=== PATIENT | male | born 1955 | race Caucasian/White ===

== ENCOUNTER 2024-02-23 23:22 | Observation (INO) | payer BC, SELFPAY ==
[2024-02-23 20:17] VITALS: BMI 29.1
[2024-02-23 20:25] VITALS: BP 123/69
[2024-02-23 20:41] LABS: % Basophils 0.4 % (0-2); % Eosinophils 2.9 % (0-6); % Immature Granulocytes 0.1 % (0-0.5); % Lymphocytes 28.4 % (20.5-51.1); % Monocytes 11.1 % (1.7-9.3); % Neutrophils 57.1 % (42.2-75.2); Absolute Eosinophils 0.2 10^3/uL (0-0.7); Absolute Lymphocytes 2.3 10^3/uL (1.2-3.4); Absolute Monocytes 0.9 10^3/uL (0.1-0.6); Absolute Neutrophils 4.6 10^3/uL (1.4-6.5); Hemoglobin 16.1 g/dL (13.0-18.0); Mean Corp Hgb Conc. 33.5 g/dL (33.0-37.0); Mean Corpuscular Volume 86.5 fL (80.0-94.0); Mean Platelet Volume 9.7 fL (7.4-10.4); Nucleated Red Blood Cells % 0 % (-); Platelet Count 288 10^3/uL (130-400); Red Blood Cell Count 5.55 10^6/uL (4.70-6.10); Red Cell Dist. Width 13.9 % (11.5-14.5)
[2024-02-23 20:58] LABS: ALT (SGPT) 38 U/L (0-50); AST (SGOT) 39 U/L (17-59); Albumin 4.3 g/dl (3.5-5.0); Alkaline Phosphatase 73 U/L (38-126); Blood Urea Nitrogen 35 mg/dl (9-20); Calcium 9.7 mg/dl (8.4-10.2); Carbon Dioxide 26 mmol/L (22-30); Chloride 99 mmol/L (98-107); Glucose 168 mg/dl (70-99); Potassium 4.4 mmol/L (3.5-5.1); Sodium 133 mmol/L (135-145); Total Bilirubin 0.4 mg/dl (0.2-1.3); Total Protein 6.9 g/dl (6.3-8.2); eGFR 46.35
--- NOTE | 2024-02-23 22:12 | ED.GENMED ---
History of Present Illness
General
Chief Complaint: Skin Problem
Source: patient and family
Exam Limitations: none
Time Seen by Provider: 02/23/24 21:49
Travel History
Have you had any contact with someone who has COVID-19?: No
Do you have any symptoms of coronavirus? Fever > 100 degrees, chills, cough, shortness of breath, sore throat, loss of taste or smell, muscle aches, or headache?: No
History of Present Illness
History of Present Illness:
This is a 68 year old male that comes in with c/o open wound on the right sided of his neck States that he had a cyst on his neck for 12-15 years. States that he was told that if this did not bother him to leave it alone. States that 2 weeks ago it
started to hurt and there was swelling. States that it felt like a golf ball. States that he went to Dr Stanford and he put him on Bactrim. Then a week ago on it was not etting any better, so he called and went in on . States that he
had opened this and packed it. Sates that in a few hours his dressing were soaked with blood. Daughter called Dr. Stanford and she was told how to take off the dressing and the packing out and repack the area. States that he continued to bleed. States
that she was to change the dressing every 24 hours. Then last night there was pus coming out of the wound. States that his lymph nodes in his neck were swollen. States that his skin also was weeping due to the tape. State that he was given Bactrim
again for a week. Tonight there is a fowl smell and it continues to be pussy. Denies any fever, chills, chest pain, SOB, abd pain, nausea, vomiting, diarrhea, headache, dizziness, urinary burning.
Past History
Past History
ED Past Medical History: CHF, HTN, Hypercholesterolemia, [place] (Multiple) and Other (Glaucoma)
ED Past Surgical History: Cardiac (Quadruple bypass, Stents)
Social History
Tobacco: Non-smoker
Alcohol: None
Personal:
Living: with family
Review of Systems
Review of Systems
All Other Systems: ROS reviewed and negative except as documented in HPI and ROS
Constitutional: Reports no symptoms; Denies fever or chills
EENT: Reports no symptoms
Respiratory: Reports no symptoms; Denies cough or trouble breathing
Cardiac: Reports no symptoms; Denies chest pain
ABD/GI: Reports no symptoms; Denies abdominal pain, nausea, vomiting or diarrhea
: Reports no symptoms
Musculoskeletal: Reports no symptoms
Skin: Reports other (Open wound right posterior neck with drainage)
Neurological: Reports no symptoms; Denies dizzy or headache
Psychiatric: Reports no symptoms
Phy Exam
General Physical Exam
General Presentation: no apparent distress
General age: appears stated age
General Skin: warm and dry
General Habitus: elderly
General Mental: alert
General Hydration: dry mucous membranes
ENT Exam
ENT Exam: TM's normal, pharynx normal and neck supple
Eye Exam
Eye Exam: EOMI
Cardiovascular Exam
Cardiovascular Exam: regular rate/rhythm, no edema, no murmur and normal peripheral pulses
Pulmonary Exam
Pulmonary Exam: lungs clear, no respiratory distress, no rales, chest non tender, no crackles, no rhonchi, no wheezing and no cough
Gastrointestinal Exam
Gastrointestinal Exam: normal bowel sounds, non tender, soft, no organomegaly, no pulsatile mass and non distended
Musculoskeletal Exam
Musculoskeletal Exam: full ROM and no edema
Skin Exam
Skin Exam: normal color, warm/dry, no petechia and redness (On the right posterior neck with almost marble size open area. Fowl smell and pussy drainage. Redness around open area. )
Psychiatric Exam
Psychiatric Exam: normal mood/affect
Course
Orders/Labs/Results
Orders:
Orders
02/23/24 20:34
Complete Blood Count/With Diff Urgent
Comprehensive Metabolic Panel Urgent
Blood Culture Urgent
ROSETTE Source: Blood/Venous
Specimen Description:
02/23/24 22:15
Piperacillin/Tazo 3.375 Gram [Zosyn] 3.375 gram in 50 ml IV NOW
02/23/24 22:26
Consult Surgery [SURGICAL CONSULT] Urgent
Consulting Provider: Rodriguez Santos
Was physician already notified: Yes
02/23/24 22:45
Blood Culture Q30M
ROSETTE Source: Blood/Venous
Specimen Description:
02/23/24 22:47
Admit/Transfer Patient As Directed
Co-Sign Provider:
Level of Care: Observation services
Assign to:: Medical/Surgical
Physician / Group: [facility]
Diagnosis: infected wound s/p I & D of the cystic lesion in the neck
Reason for Hospitalization: infected wound s/p I & D of the cystic lesion in the neck
02/23/24 22:49
Code Status As Directed
Resuscitation Status: Full Code
02/23/24 23:02
Lactic Acid Urgent
Blood Culture Q30M
ROSETTE Source: Blood/Venous
Specimen Description:
Wound Culture [Wound/Abscess/Other Culture] Urgent
ROSETTE Source: Neck
Specimen Description:
Date Specimen was Collected: 02/23/24
Time Specimen was Collected: 22:41
02/24/24 00:27
Acetaminophen [Tylenol] 650 mg PO Q4HPRN PRN
02/24/24 00:27
WOUND/OSTOMY CONSULT Routine
Reason for Consult: infected wound s/p I & D of neck cystic lesion
Activity As Directed
Activity Level: With Assistance
Pneumatic Compression Sleeves As Directed
Type: Knee high
Vital Signs As Directed
Frequency: Per unit guidelines
Weight As Directed
Frequency: Daily
DX Deep Vein Thrombosis Video Routine
02/24/24 Breakfast
Cholesterol Lowering
At Your Request: Full Participation
Cholesterol Lowering: Sodium, 2 Gram
Basic Metabolic Panel IN AM
Complete Blood Count/No Diff IN AM
Abnormal Lab Results
02/23/24
20:34
Absolute Monos (auto) 0.9 H 10^3/uL
(0.1-0.6)
Monocytes % 11.1 H %
(1.7-9.3)
Sodium 133 L mmol/L
(135-145)
BUN 35 H mg/dl
(9-20)
Creatinine 1.6 H mg/dL
(0.7-1.3)
Glucose 168 H mg/dl
(70-99)
02/23/24 20:34
02/23/24 20:34
Sodium slightly low. Dehydration. Acute renal insufficiency, Glucose nonfasting. Lactic 1.0
Vital Signs
Initial and Last Documented VS:
Initial Vital Signs
Temp Pulse Resp BP Pulse Ox
98.2 F 62 19 123/69 99
02/23/24 20:25 02/23/24 20:25 02/23/24 20:25 02/23/24 20:25 02/23/24 20:25
Last Documented Vital Signs
Temp Pulse Resp BP Pulse Ox
98.1 F 55 16 105/58 97
02/24/24 00:25 02/24/24 00:25 02/24/24 00:25 02/24/24 00:25 02/24/24 00:25
MDM/Problems Addressed
Differential Diagnosis Includes:
Open neck wound,
MDM/Problems Addressed:
This is a 68 year old male that comes in with c/o open wound on the right posterior neck. State that he has been place on Bactrim twice and in the past 2 days he has had pussy drainage.
Will check labs, culture area and admit. Explained that the area is red and there is a very fowl smell with pus noted. Will give IV antibiotics and notify Hospitalist and General surgery who opened the cyst.
Chronic conditions affecting care: DM
Acute Exacerbation and/or Progression of Chronic Illness:
NA
*Pulse Oximetry
Patient hypoxic: no
*EKG
Interpreted by ED Provider?: NA
Rate: EKG- N/A
*Engine Tester Interpretation
Rate: Engine Tester- N/A
*Critical Care Note
Total Time (30-74mins, 75-104mins- exclusive of procedures): Not Applicable
ED Attending Note
-
Portions of this chart may have been created with voice recognition software.� Occasional wrong word or��sound alike� substitutions may have occurred due to the inherent limitations of voice recognition software.
Discharge Plan
Departure
Patient Disposition: Admit
Presentation/result/management discussed w/ accepting MD/DO: Hospitalist
Patient with high blood pressure during this ER visit?: No
Condition: Good
Covid-19: Not Applicable
Discharge Problem:
open wound right neck
Interventions
Interventions:
*Risk Screen - Suicide Last Done: 02/24/24 00:32
*General Assessment Last Done: 02/23/24 23:42
*Neglect/Abuse Screening Last Done: 02/23/24 23:42
ED- Fall Risk Assessment Last Done: 02/24/24 00:24
*ED COVID-19 Vaccine History Last Done: 02/23/24 20:28
*Nursing Disposition Last Done: 02/24/24 00:24
Discharge Date and Time
Discharge Date/Time: 02/24/24 00:41
--- NOTE | 2024-02-23 22:41 | HPS.HSE ---
Addendum entered and electronically signed by Kleber Sihna MD 03/01/24 20:09:
Allergies
Allergy/AdvReac Type Severity Reaction Status Date / Time
No Known Allergies Allergy Unverified 02/23/24 20:27
Home Medications
aspirin 81 mg capsule 81 mg PO DAILY Blood Clot Prevention/Tx 02/24/24
atorvastatin 80 mg tablet (Lipitor) 80 mg PO HS High Cholesterol 02/24/24
brinzolamide 1 %-brimonidine 0.2 % eye drops,suspension (Simbrinza) 1 drp BOTH EYES BID Eye Condition 02/24/24
bumetanide 2 mg tablet 2 mg PO BID Fluid Retention/Swelling 02/24/24
dapagliflozin propanediol 10 mg tablet (Farxiga) 10 mg PO DAILY Diabetes 02/24/24
ezetimibe 10 mg tablet (Zetia) 10 mg PO DAILY High Cholesterol 02/24/24
glimepiride 4 mg tablet 4 mg PO BID Diabetes 02/24/24
insulin glargine 100 unit/mL subcutaneous solution (Lantus U-100 Insulin) 16 unit SC 2XD Diabetes 02/24/24
ketorolac 0.5 % eye drops 1 drp RIGHT EYE BID Eye Condition 02/24/24
latanoprost 0.005 % eye drops 1 drp BOTH EYES HS Eye Condition 02/24/24
levomefolate calcium 15 mg tablet (L-Methylfolate) 15 mg PO DAILY Supplement 02/24/24
metoprolol succ 25 mg-hydrochlorothiazide 12.5 mg tablet,ext.rel 24 hr 12.5 tab PO 1XD Heart Disease/Condition 02/24/24
prasugrel 10 mg tablet 10 mg PO DAILY Blood Clot Prevention/Tx 02/24/24
sacubitril 49 mg-valsartan 51 mg tablet (Entresto) 1 tab 2XD Heart Failure 02/24/24
sertraline 25 mg tablet (Zoloft) 25 mg PO DAILY Depression 02/24/24
cephalexin 500 mg capsule 500 mg PO Q8H 5 days #15 caps 02/25/24
Original Note:
Family Physician
-
Family Physician:
Chief Complaint
-
foul smellig pus from neck wound
History of Present Illness
68M HX multiple MIs, CAD, CHF, HTN with chronic cystic lesion on neck for for many years
2 weeks ago, due to acute pain and swelling of the neck cyst, seen Dr Stanford and initated Bactrim without progress.
Thus he underwent I & D of the cyst and and packed.
Reports oozing from th surgical wound side , daughter change the dressing and repacked with Surgeon' s instruction
Last night , daughter nited pus coming out of the wound plus swollen lymph nodes in the neck
He was given Bactrim again for a week. Tonight, noted a fowl smell and it continues to drain pus.
ROS:
Denies any fever, chills, , nausea, vomiting, diarrhea, headache, dizziness, urinary burning.
Medical History
Past Medical History
Past Medical History: Reports Other
Additional Past Medical History:
CHF, HTN, Hypercholesterolemia, [place] (Multiple) and Other (Glaucoma)
Past Surgical History: Reports Cardiac (Quadruple bypass, Stents))
Social History
Tobacco: Non-smoker
Alcohol: None
Drug: None
Personal:
Living: With Family
Family History
Family History: Not pertinent
Allergies / Home Medications
Allergies reflects when Allergies were last updated in [employer].
Home Medications with original date entered in [employer]
Allergy/Medication List:
Allergies
Allergy/AdvReac Type Severity Reaction Status Date / Time
No Known Allergies Allergy Unverified 02/23/24 20:27
If medication reconciliation has not been performed, why?: Medication List N/A
Review of Systems
-
EENT: Reports Other (see skin exam )
Respiratory: Reports No Symptoms
Cardiac: Reports No Symptoms
Abdomen/GI: Reports No Symptoms
: Reports No Symptoms
Musculoskeletal: Reports No Symptoms
Skin: Reports Other (At Rt posterior neck: Open area. Fowl smell and pussy drainage. Local redness around open area)
Neurological: Reports No Symptoms
Endocrine: Reports No Symptoms
Hematologic/Lymphatic: Reports No Symptoms
Psych: Reports No Symptoms
Physical Exam
Vital Signs
Vital Signs
Temp Pulse Resp BP Pulse Ox
98.2 F 62 19 123/69 99
02/23/24 20:25 02/23/24 20:25 02/23/24 20:25 02/23/24 20:25 02/23/24 20:25
Physical Exam
General: Well Developed, No Apparent Distress, Comfortable and Conversant
HEENT: NormoCephalic, Anicteric and Moist mucous membranes
Respiratory: Clear
Cardiac: S1/S2 and Regular Rhythm; No Murmur
Breast: Deferred by me
GI: Soft, Non Tender and Non Distended
Rectal: Deferred by Provider
Genito-urinary: Deferred by me
Musculoskeletal: No Edema
Skin: Other (At Rt posterior neck: Open area. Fowl smell and pussy drainage. Local redness around open area)
Neuro: AO x 3 and Nonfocal/grossly intact
Psych: Calm
Laboratory Results
-
02/23/24 20:34
02/23/24 20:34
Laboratory Results
Total Bilirubin 0.4 mg/dl (0.2-1.3) 02/23/24 20:34
AST 39 U/L (17-59) 02/23/24 20:34
ALT 38 U/L (0-50) 02/23/24 20:34
Alkaline Phosphatase 73 U/L (38-126) 02/23/24 20:34
Data Reviewed
-
Lab Data: Labs Reviewed by me
Impression/Plan
-
Reviewed VS: afebrile & unremarkable
Data
WCC 8
Na 133
BUN 35
Cr 1.6 ( No prior data in [employer])
eGFR 46
Pending LA
Wound Cx sent
BCX sent
ASSESSMENT & PLAN
No prior admission to
Pending Rx reconciliation
Infected surgical site of POD2 I & D of chr cyst of neck
Inadequate progress with OP Bactrim
Afebrile and nl WCC
No prior HX SSTI, MRSA
Lives at home
- IV Ancef in place of Zosyn
- follow the Wd Cx
- Wd care consult
- GS consulted
Suspect CKD3
- trend Cr
Pre existing conditions:
CHF NOS
HTN
Hypercholesterolemia
NH (Multiple)
HX Quadruple bypass, Stents)
Glaucoma
DVT Px: SCD
Code: Full
Obs MS
[2024-02-23] MEDS: ZOSYN 50 IV (23:12)
[2024-02-23 23:13] VITALS: BP 99/63
[2024-02-24] VITALS: BP 92/63
[2024-02-24 00:25] VITALS: BP 105/58; BMI 27.1
[2024-02-24 01:12] LABS: Glucose - Point of Care 106 mg/dl (70-99)
[2024-02-24] MEDS: ANCEF 5 IV ×3 (01:22→17:25)
[2024-02-24 06:00] VITALS: BMI 26.3
[2024-02-24 07:06] VITALS: BP 106/62
[2024-02-24 07:14] LABS: Glucose - Point of Care 95 mg/dl (70-99)
[2024-02-24 07:32] LABS: Hematocrit 47.3 % (39.0-52.0); Hemoglobin 15.9 g/dL (13.0-18.0); Mean Corp Hgb Conc. 33.6 g/dL (33.0-37.0); Mean Corpuscular Hgb 29.3 pg (27.0-31.0); Mean Corpuscular Volume 87.1 fL (80.0-94.0); Platelet Count 266 10^3/uL (130-400); Red Blood Cell Count 5.43 10^6/uL (4.70-6.10); Red Cell Dist. Width 14.2 % (11.5-14.5); White Blood Cell Count 7.3 10^3/uL (4.8-10.8)
[2024-02-24 08:08] LABS: Blood Urea Nitrogen 33 mg/dl (9-20); Calcium 9.2 mg/dl (8.4-10.2); Chloride 100 mmol/L (98-107); Estimated Creatinine Clearance 45 ml/min; Glucose 95 mg/dl (70-99); Potassium 4.4 mmol/L (3.5-5.1); Sodium 135 mmol/L (135-145); eGFR 46.35
[2024-02-24 08:35] LABS: Carbon Dioxide 25 mmol/L (22-30)
--- NOTE | 2024-02-24 08:35 | W.PN.HOSP.TC ---
Today's Communication/Plan
-
Continue course of cefazolin local wound care and await general surgery input
Await culture result
Assessment / Plan
Assessment / Plan
68M HX multiple MIs, CAD, CHF, HTN with chronic cystic lesion on neck for for many years
2 weeks ago, due to acute pain and swelling of the neck cyst, seen Dr Stanford and initated Bactrim without progress.
Thus he underwent I & D of the cyst and and packed.
Reports oozing from th surgical wound side , daughter change the dressing and repacked with Surgeon' s instruction
Last night , daughter nited pus coming out of the wound plus swollen lymph nodes in the neck
He was given Bactrim again for a week. Tonight, noted a fowl smell and it continues to drain pus.
ROS:
Denies any fever, chills, , nausea, vomiting, diarrhea, headache, dizziness, urinary burning.
Infected surgical site of POD2 I & D of chr cyst of neck
Inadequate progress with OP Bactrim
Afebrile and nl WCC
No prior HX SSTI, MRSA
Lives at home
- IV Ancef in place of Zosyn
- follow the Wd Cx
- Wd care consult
- GS consulted
Suspect CKD3
- trend Cr stable at 1.6
Pre existing conditions:
CHF NOS/continue Entresto/Farxiga
HTN
Hypercholesterolemia/statin and Zetia
TX (Multiple)
HX Quadruple bypass, Stents)/aspirin statin and Zetia
Glaucoma
Diabetes mellitus/continue glimepiride and Lantus
DVT Px: SCD
Code: Full
Obs MS
Anticipated Discharge: Within 24 hours
Subjective/Interval History
-
Date of Service: February 24, 2024
Some tolerable pain to the right side of his neck at area of infection continues to have significant purulent drainage
Objective Data
-
Labs:
Laboratory Results
02/23/24 02/24/24
20:34 06:30
WBC 8.0 7.3
Hgb 16.1 15.9
Hct 48.0 47.3
Plt Count 288 266
Sodium 133 L 135
Potassium 4.4 4.4
Chloride 99 100
Carbon Dioxide 26 Pending
BUN 35 H 33 H
Creatinine 1.6 H 1.6 H
Glucose 168 H 95
Calcium 9.7 9.2
Total Bilirubin 0.4
AST 39
ALT 38
Alkaline Phosphatase 73
Vital Signs:
Vital Signs
Temp Pulse Resp BP Pulse Ox
97.8 F 50 17 106/62 98
02/24/24 07:06 02/24/24 07:06 02/24/24 07:06 02/24/24 07:06 02/24/24 07:06
I&O
02/23/24 02/24/24 02/25/24
06:59 06:59 06:59
Intake Total 240 / 240
Balance 240 / 240
Review of Systems
-
History Source: Patient
Constitutional: Reports No Symptoms; Denies Fever
EENT: Reports No Symptoms Reported
Respiratory: Reports No Symptoms
Cardiac: Reports No Symptoms
Physical Exam
-
General: Well Developed
HEENT: Neck Masses (rt side with area of draining abscess with surrounding erythema approximating 3 x 3)
Respiratory: Clear to Auscultation
Cardiac: Regular Rhythm
Skin: Ulcers
Psych: Calm
Data Reviewed
-
Total Time Spent with Patient (in minutes): 56
Labs: Labs Reviewed by me (Creatinine at baseline consistent with his CKD 1.6)
--- NOTE | 2024-02-24 09:07 | CON.GS ---
Addendum entered and electronically signed by Rodriguez Santos MD 02/24/24 13:21:
Patient seen and examined with surgical nurse petitioner. Agree with documented consultation note.
HPI: 68-year-old male known to our surgical service as an outpatient where he was initially treated with oral antibiotics followed by subsequent I&D of right posterior neck infected sebaceous cyst. Secondary to persistent purulent drainage erythema
and surrounding palpable swollen lymph nodes presents emergency department yesterday evening for further evaluation. He reports continued discomfort and swelling in the region of his recent I&D and ongoing drainage with difficulty caring for at
home. Sore but not severely painful. No secondary constitutional symptoms.
AF VSS
Right posterior neck: Palpable lymphadenopathy along the anterior cervical chain. Skin excoriation from tape. There is a open wound overlying sebaceous cyst cavity which is approximately 1.5 cm in diameter. Purulence and sebaceous material as
well as fluctuance still noted on exam.
Assessment/plan: 64-year-old male with refractory/persistent sebaceous cyst infection despite initial office I&D 03/12
At bedside with manual compression initially the remaining sebaceous material and purulence was fully expressed through the already existing open wound. This leads down to clean subcutaneous cystic contents and tissue with the cyst tunneling to the
9 o'clock position where there is a visible punctate spot on the skin. Copiously irrigated with saline and cleansed cystic cavity with abrasion utilizing 4 x 4 gauze until clean. Fully packed cavity with clean 2 x 2 taking care to ensure that the
gauze was occupying the undermining of the cyst to the 9 o'clock position.
Will plan on bedside dressing change tomorrow.
Continue antibiotics -cefazolin. Cultures obtained in emergency department pending
Will likely be stable for discharge tomorrow with local wound care and outpatient surgical follow-up.
Will follow thank you
Original Note:
Consultation
-
Date/Time Consultation Requested: 02/23/242205
Requesting Provider: jessy
Medical History
-
Chief Complaint: neck pain
History of Present Illness:
68 yo male with a h/o CAD, NM's, CABG, CHF who was recently seen in clinic on 02/11/[address] Stanford for infected sebaceous cyst to the right neck and was prescribed Bactrim x1 week with follow up for I&D in clinic on 02/21/24 with renewal of Bactrim
script. He presented through the ED with purulent drainage and worsening edema and mild surrounding erythema. There is thick drainage noted. He is afebrile. There is no leukocytosis. Site is sore but no severe pain noted.
Past Medical History
Past Medical History: CAD, HTN, Hypercholesterolemia and NIDDM (with neuropathy)
Past Surgical History: Cardiac (PTCA stents, CABG)
Social History
Tobacco: Non-Smoker
Family History
Family History: Early CAD
Allergies / Home Medications
Allergy/AdvReac Type Severity Reaction Status Date / Time
No Known Allergies Allergy Unverified 02/23/24 20:27
�Medication �Instructions �Recorded �Confirmed �Type
aspirin 81 mg capsule 81 mg PO DAILY 02/24/24 02/24/24 History
atorvastatin 80 mg tablet (Lipitor) 80 mg PO HS 02/24/24 02/24/24 History
brinzolamide 1 %-brimonidine 0.2 % 1 drp 2XD 02/24/24 02/24/24 History
eye drops,suspension (Simbrinza)
bromfenac 0.07 % eye drops 1 drp ophthalmic (eye) ONCE 02/24/24 02/24/24 History
(Prolensa)
bumetanide 2 mg tablet 2 mg PO BID 02/24/24 02/24/24 History
dapagliflozin propanediol 10 mg 10 mg PO DAILY Diabetes 02/24/24 02/24/24 History
tablet (Farxiga)
ezetimibe 10 mg tablet (Zetia) 10 mg PO DAILY 02/24/24 02/24/24 History
glimepiride 4 mg PO 2XD 02/24/24 02/24/24 History
insulin glargine 100 unit/mL 16 unit SC 2XD 02/24/24 02/24/24 History
subcutaneous solution (Lantus
U-100 Insulin)
levomefolate calcium 15 mg tablet 15 mg PO DAILY 02/24/24 02/24/24 History
(L-Methylfolate)
metoprolol succ 25 12.5 tab PO 1XD 02/24/24 02/24/24 History
mg-hydrochlorothiazide 12.5 mg
tablet,ext.rel 24 hr
netarsudil 0.02 %-latanoprost 1 drp ophthalmic (eye) QPM 02/24/24 02/24/24 History
0.005 % eye drops (Rocklatan)
prasugrel 10 mg tablet 10 mg PO DAILY 02/24/24 02/24/24 History
sacubitril 49 mg-valsartan 51 mg 1 tab 2XD 02/24/24 02/24/24 History
tablet (Entresto)
sertraline 25 mg tablet (Zoloft) 25 mg PO DAILY 02/24/24 02/24/24 History
Review of Systems
-
History Source: Patient
All other systems: Negative unless noted
A 10 point review of systems was completed, and was negative except as per HPI.
Physical Exam
Vital Signs
Temp Pulse Resp BP Pulse Ox
97.8 F 50 17 106/62 98
02/24/24 07:06 02/24/24 07:06 02/24/24 07:06 02/24/24 07:06 02/24/24 07:06
02/23/24 02/24/24 02/25/24
06:59 06:59 06:59
Actual Weight 83.036 kg
Body Mass Index (BMI) 26.3
Lab Results
02/24/24 06:30
02/24/24 06:30
WBC 7.3 10^3/uL (4.8-10.8) 02/24/24 06:30
Hgb 15.9 g/dL (13.0-18.0) 02/24/24 06:30
Hct 47.3 % (39.0-52.0) 02/24/24 06:30
Plt Count 266 10^3/uL (130-400) 02/24/24 06:30
Abs Immat Gran (auto) 0.0 10^3/uL (0-0.05) 02/23/24 20:34
Neutrophils % 57.1 % (42.2-75.2) 02/23/24 20:34
Physical Exam
General: Well Developed and Well Nourished
HEENT: Moist Mucous Membranes
Respiratory: Non Labored Respirations
GI: Soft and Non Tender
Skin: Warm and Other (right neck with edema/mild erythema surrounding cyst which is open and draining purulent fluid. Tunneling to the 10)
Neuro: Awake, Alert and AO x 3
Psych: Calm
Data Reviewed
-
Labs: Labs Reviewed by me, Discussed with Physician and Discussed with Patient
Old Records: Reviewed
Assessment / Plan
-
68 yo male on prasugrel presenting with infected sebaceous cyst s/p I&D as OP on 02/20 with Bactrim given. Edema and purulent fluid noted. Abscess cavity flushed, and cleansed at bedside. Packed with dry gauze.
AFVSS
No leukocytosis
--Continue local care
--IV abx as per primary team
--Will continue to follow
[2024-02-24] MEDS: FARXIGA 10 MG PO (09:34)
[2024-02-24] MEDS: ENTRESTO 49 MG/51 MG 1 TAB PO ×2 (09:34→21:28)
[2024-02-24] MEDS: ORETIC 12.5 MG PO (09:34)
[2024-02-24] MEDS: AMARYL 4 MG PO ×2 (09:35→20:28)
[2024-02-24] MEDS: TOPROL XL 25 MG PO (09:35)
[2024-02-24] MEDS: ASPIR LOW (ENTERIC COATED) 81 MG PO (09:35)
[2024-02-24] MEDS: LANTUS 0.160000000000000003 UNITS SC ×2 (09:36→21:28)
[2024-02-24] MEDS: SIMBRINZA 1%-0.2% OPHTH SUSP 1 DROP BOTH EYES ×2 (09:48→20:29)
[2024-02-24] MEDS: ACULAR 0.5% EYE DROPS 1 DROP RIGHT EYE ×2 (10:16→20:28)
[2024-02-24 11:52] LABS: Glucose - Point of Care 147 mg/dl (70-99)
--- NOTE | 2024-02-24 13:12 | CM ---
CM met with pt at bedside.
Pt resides with spouse and adult daughter. Independent prior to admission. 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
Confirmed PCP is Dr. Ríos. Pharmacy is [facility] on [facility].
Pt reports + prescription plan.
Anticipated dispo home no needs. CM to follow and watch for needs, including antibiotic needs.
CM reviewed Observation notice with pt. Original placed on chart and signed copy provided to pt.
[2024-02-24 15:43] VITALS: BP 121/69
[2024-02-24 16:56] LABS: Glucose - Point of Care 177 mg/dl (70-99)
[2024-02-24] MEDS: NOVOLOG vial 5 UNITS SC (17:22)
[2024-02-24] MEDS: BUMEX 2 MG PO (17:24)
[2024-02-24] MEDS: NOVOLOG FLEXPEN-LOW RESISTANCE 1 UNITS SC (17:24)
[2024-02-24 21:01] LABS: Glucose - Point of Care 205 mg/dl (70-99)
[2024-02-24] MEDS: LIPITOR 80 MG PO (21:28)
[2024-02-24] MEDS: XALATAN OPHTHALMIC SOLUTION 1 DROP BOTH EYES (23:08)
[2024-02-24 23:50] VITALS: BP 97/54
[2024-02-25] MEDS: ANCEF 5 IV ×2 (02:57→10:45)
[2024-02-25 04:58] LABS: Hematocrit 48.1 % (39.0-52.0); Hemoglobin 16.3 g/dL (13.0-18.0); Mean Corp Hgb Conc. 33.9 g/dL (33.0-37.0); Mean Corpuscular Hgb 29.2 pg (27.0-31.0); Mean Corpuscular Volume 86.2 fL (80.0-94.0); Mean Platelet Volume 9.8 fL (7.4-10.4); Platelet Count 310 10^3/uL (130-400); Red Blood Cell Count 5.58 10^6/uL (4.70-6.10); Red Cell Dist. Width 13.9 % (11.5-14.5); White Blood Cell Count 7.6 10^3/uL (4.8-10.8)
[2024-02-25 05:25] LABS: Blood Urea Nitrogen 35 mg/dl (9-20); Calcium 9.7 mg/dl (8.4-10.2); Carbon Dioxide 29 mmol/L (22-30); Chloride 94 mmol/L (98-107); Estimated Creatinine Clearance 40 ml/min; Glucose 155 mg/dl (70-99); Potassium 4.1 mmol/L (3.5-5.1); Sodium 135 mmol/L (135-145); eGFR 40.24
[2024-02-25 07:35] VITALS: BP 113/66
--- NOTE | 2024-02-25 07:51 | WOUNDNOTE ---
WOC RN Note: Soto texted Priscilla Chang, surgical REPORT CHECKER re: joint visit for consult. Priscilla responded WOC RN consult not needed. Surgery service is managing and Priscilla cancelled the WOC RN consult.
[2024-02-25 08:35] LABS: Glucose - Point of Care 205 mg/dl (70-99)
[2024-02-25] MEDS: NOVOLOG FLEXPEN 5 UNITS SC ×2 (08:35→11:56)
[2024-02-25] MEDS: LANTUS 0.160000000000000003 UNITS SC (08:36)
[2024-02-25] MEDS: NOVOLOG FLEXPEN-LOW RESISTANCE 2 UNITS SC (08:36)
[2024-02-25] MEDS: ACULAR 0.5% EYE DROPS 1 DROP RIGHT EYE (08:39)
[2024-02-25] MEDS: SIMBRINZA 1%-0.2% OPHTH SUSP 1 DROP BOTH EYES (08:39)
[2024-02-25] MEDS: AMARYL 4 MG PO (08:42)
[2024-02-25] MEDS: ASPIR LOW (ENTERIC COATED) 81 MG PO (08:43)
[2024-02-25] MEDS: FARXIGA 10 MG PO (08:43)
[2024-02-25] MEDS: ZETIA 10 MG PO (08:43)
[2024-02-25] MEDS: ZOLOFT 25 MG PO (08:44)
[2024-02-25] MEDS: TOPROL XL 25 MG PO (08:44)
[2024-02-25] MEDS: ORETIC 12.5 MG PO (08:44)
[2024-02-25] MEDS: BUMEX 2 MG PO (08:44)
[2024-02-25] MEDS: NOVOLOG vial SC (08:46)
[2024-02-25 09:01] LABS: Glycohemoglobin (HgbA1c) 8.3 % (4.0-5.6)
[2024-02-25] MEDS: ENTRESTO 49 MG/51 MG 1 TAB PO (09:27)
--- NOTE | 2024-02-25 10:10 | W.PN.GS2 ---
Today's Communication / Plan
-
Dispo planning
Assessment / Plan
-
This is a 64-year-old male with an infected sebaceous cyst status post initial incision and drainage earlier this week with persistent infection due to residual material status post bedside debridement 02/24/2024 and again today 02/25/2024.
Reviewed home-going wound care instructions.
Can continue p.o. antibiotics x 4 days
Please give some wound care supplies.
Patient to follow-up with Dr. Stanford as an outpatient.
Cleared for discharge per surgery.
Time Spent
Total Time Spent with Patient (in minutes): 25
Subjective Data
-
Date of Service: February 25, 2024
Interval Events:
No acute events overnight. Slept well. Pain Controlled. No fevers, nausea or vomiting.
Objective Data
-
Intake and Output
02/24/24 02/25/24 02/26/24
06:59 06:59 06:59
Intake Total 1919
Balance 1919
Intake:
Oral fluids 1919
Other:
Number of approximated MODERATE 3
amounts of urine
Number of approximated LARGE 2
amounts of urine
Vital Signs
Temp Pulse Resp BP Pulse Ox
97.6 F 57 18 108/63 96
02/25/24 07:35 02/25/24 08:44 02/25/24 07:35 02/25/24 08:44 02/25/24 07:35
Lab Results
02/25/24 04:12
02/25/24 04:12
Calcium 9.7 mg/dl (8.4-10.2) 02/25/24 04:12
Total Bilirubin 0.4 mg/dl (0.2-1.3) 02/23/24 20:34
AST 39 U/L (17-59) 02/23/24 20:34
ALT 38 U/L (0-50) 02/23/24 20:34
Alkaline Phosphatase 73 U/L (38-126) 02/23/24 20:34
Total Protein 6.9 g/dl (6.3-8.2) 02/23/24 20:34
Albumin 4.3 g/dl (3.5-5.0) 02/23/24 20:34
Physical Exam
-
General: No apparent distress.
Neck: He has a 2 cm punctate wound on his right lateral neck with undermining posteriorly to the 9 o'clock position. Wound irrigated out with expression of sebaceous material and repacked.
[2024-02-25 11:54] LABS: Glucose - Point of Care 255 mg/dl (70-99)
[2024-02-25] MEDS: NOVOLOG FLEXPEN-LOW RESISTANCE 3 UNITS SC (11:56)
[2024-02-25 11:58] VITALS: BP 113/66
--- NOTE | 2024-02-25 12:01 | W.PN.HOSP.TC ---
Addendum entered and electronically signed by Dedrick Tineo MD 02/25/24 16:02:
[id number]
Original Note:
Today's Communication/Plan
-
can d c on cephalexin 500mg q8h x 5 additional days to complete 7 day course
F/u PCP, Surgery outpatient
Assessment / Plan
Assessment / Plan
68M HX multiple MIs, CAD, CHF, HTN with chronic cystic lesion on neck for for many years
2 weeks ago, due to acute pain and swelling of the neck cyst, seen Dr Stanford and initated Bactrim without progress.
Thus he underwent I & D of the cyst and and packed.
Reports oozing from th surgical wound side , daughter change the dressing and repacked with Surgeon' s instruction
Last night , daughter nited pus coming out of the wound plus swollen lymph nodes in the neck
He was given Bactrim again for a week. Tonight, noted a fowl smell and it continues to drain pus.
ROS:
Denies any fever, chills, , nausea, vomiting, diarrhea, headache, dizziness, urinary burning.
Infected surgical site of POD2 I & D of chr cyst of neck
Inadequate progress with OP Bactrim
Afebrile and nl WCC
No prior HX SSTI, MRSA
Lives at home
- IV Ancef in place of Zosyn - improving s/p I&D; can d c on cephalexin 500mg q8h x 5 additional days to complete 7 day course
- prelim wound culture with coag neg staph
- Wd care consult - wound care recs provided
- GS was on board - s/p I&D
Suspect CKD3
- f/u outpatient
Pre existing conditions:
CHF NOS/continue Entresto/Farxiga
HTN
Hypercholesterolemia/statin and Zetia
UT (Multiple)
HX Quadruple bypass, Stents)/aspirin statin and Zetia
Glaucoma
Diabetes mellitus/continue glimepiride and Lantus -- monitor outpatient
More than 30 minutes spent in discharge including
Final examination of the patient
Summarizing hospital stay
Instructions for continuing care to all relevant caregivers
Preparation of discharge records, prescriptions, and referral forms
Total time spent (35 in minutes):
Anticipated Discharge: Today
Subjective/Interval History
-
Date of Service: February 25, 2024
No acute events
Objective Data
-
Labs:
Laboratory Results
02/25/24
04:12
WBC 7.6
Hgb 16.3
Hct 48.1
Plt Count 310
Sodium 135
Potassium 4.1
Chloride 94 L
Carbon Dioxide 29
BUN 35 H
Creatinine 1.8 H
Glucose 155 H
Calcium 9.7
Vital Signs:
Vital Signs
Temp Pulse Resp BP Pulse Ox
99 F 64 14 113/66 98
02/25/24 11:58 02/25/24 11:58 02/25/24 11:58 02/25/24 11:58 02/25/24 11:58
I&O
02/24/24 02/25/24 02/26/24
06:59 06:59 06:59
Intake Total 1919
Balance 1919
Review of Systems
-
History Source: Patient
Constitutional: Reports No Symptoms; Denies Fever
EENT: Reports No Symptoms Reported
Respiratory: Reports No Symptoms
Cardiac: Reports No Symptoms
Physical Exam
-
General: Well Developed
HEENT: Neck Masses (wound repacked - no obvious evidence of purulent material s/p I&D)
Respiratory: Clear to Auscultation
Cardiac: Regular Rhythm
GI: Nontender
Genito-urinary: No Costovertebral Tender
Musculoskeletal: No Clubbing
Skin: Warm, Dry and Ulcers
Neuro: Awake, Alert, Oriented and AO x 3
Hematologic / Lymphatic: No Lymphadenopathy
Psych: Calm
Data Reviewed
-
Labs: Labs Reviewed by me
--- NOTE | 2024-02-25 12:05 | CM ---
Patient has been medically cleared for discharge to home with no additional skilled services. Patient has arranged for transport home.
--- NOTE | 2024-02-25 12:06 | W.DS.TRANS ---
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
-
Discharge Instructions:
Discharge Diagnosis/Procedures neck cyst - Infected surgical site
Diet No restrictions
Activity No restrictions
Driving Restrictions As prior to admission
Bathing Restrictions OK to Shower
Blood Work bmp in 1 week with pcp
Instructions:
Stand-Alone Forms:
Changes to Home Medications: Yes
Discharge Medications:
DC Medications w/original date entered in [facility]
aspirin 81 mg capsule 81 mg PO DAILY Blood Clot Prevention/Tx 02/24/24
atorvastatin 80 mg tablet (Lipitor) 80 mg PO HS High Cholesterol 02/24/24
brinzolamide 1 %-brimonidine 0.2 % eye drops,suspension (Simbrinza) 1 drp BOTH EYES BID Eye Condition 02/24/24
bumetanide 2 mg tablet 2 mg PO BID Fluid Retention/Swelling 02/24/24
dapagliflozin propanediol 10 mg tablet (Farxiga) 10 mg PO DAILY Diabetes 02/24/24
ezetimibe 10 mg tablet (Zetia) 10 mg PO DAILY High Cholesterol 02/24/24
glimepiride 4 mg tablet 4 mg PO BID Diabetes 02/24/24
insulin glargine 100 unit/mL subcutaneous solution (Lantus U-100 Insulin) 16 unit SC 2XD Diabetes 02/24/24
ketorolac 0.5 % eye drops 1 drp RIGHT EYE BID Eye Condition 02/24/24
latanoprost 0.005 % eye drops 1 drp BOTH EYES HS Eye Condition 02/24/24
levomefolate calcium 15 mg tablet (L-Methylfolate) 15 mg PO DAILY Supplement 02/24/24
metoprolol succ 25 mg-hydrochlorothiazide 12.5 mg tablet,ext.rel 24 hr 12.5 tab PO 1XD Heart Disease/Condition 02/24/24
prasugrel 10 mg tablet 10 mg PO DAILY Blood Clot Prevention/Tx 02/24/24
sacubitril 49 mg-valsartan 51 mg tablet (Entresto) 1 tab 2XD Heart Failure 02/24/24
sertraline 25 mg tablet (Zoloft) 25 mg PO DAILY Depression 02/24/24
cephalexin 500 mg capsule 500 mg PO Q8H 5 days #15 caps 02/25/24
Home Medication Changes
cephalexin 500 mg capsule 500 mg PO Q8H 5 days #15 caps 02/25/24
Pending Results: No
== END 2024-02-25 14:51 | disposition home or self-care (01) ==
LOC: 2 SOUTH 23:22
PROVIDERS: Clinical Nurse Specialist Family Health; Emergency Medicine; Internal Medicine; ADMITTING PHYSICIAN Internal Medicine; ATTENDING PHYSICIAN Internal Medicine; CONSULT PHYSICIAN Surgery; EMERGENCY PHYSICIAN Emergency Medicine; FAMILY PHYSICIAN Family Medicine
DX: T81.41XA Infection following a procedure, superficial incisional surgical site, initial encounter (principal); L02.11 Cutaneous abscess of neck; Y83.8 Other surgical procedures as the cause of abnormal reaction of the patient, or of later complication, without mention of misadventure at the time of the procedure; Y92.9 Unspecified place or not applicable; L08.9 Local infection of the skin and subcutaneous tissue, unspecified; B95.7 Other staphylococcus as the cause of diseases classified elsewhere; E86.0 Dehydration; R59.0 Localized enlarged lymph nodes; L72.3 Sebaceous cyst; S11.90XA Unspecified open wound of unspecified part of neck, initial encounter; I11.0 Hypertensive heart disease with heart failure; I50.9 Heart failure, unspecified; H40.9 Unspecified glaucoma; E78.00 Pure hypercholesterolemia, unspecified; I25.2 Old myocardial infarction; E11.40 Type 2 diabetes mellitus with diabetic neuropathy, unspecified; I25.10 Atherosclerotic heart disease of native coronary artery without angina pectoris; Z95.5 Presence of coronary angioplasty implant and graft; Z79.82 Long term (current) use of aspirin
CPT/HCPCS: 80048; 80053; 82962; 83036; 83605; 85025; 85027; 87040; 87070; 87147; 87186; 87205; 96365; 99284; G0378

== ENCOUNTER 2024-04-18 06:06 | Day surgery (SDC) | payer BC, SELFPAY ==
[2024-04-18 06:20] VITALS: BMI 27.9
[2024-04-18 06:34] VITALS: BP 112/63
[2024-04-18 06:37] LABS: Glucose - Point of Care 129 mg/dl (70-99)
[2024-04-18] MEDS: NORMOSOL-R 1000 IV (06:43)
--- NOTE | 2024-04-18 07:01 | HP.FOC2 ---
Focused History & Physical
Chief Complaint
HPI:
Chief Complaint: History of infected sebaceous cyst
HPI / Indication for Planned Procedure: Patient is a 68-year-old male presenting for scheduled excision of a right posterior neck sebaceous cyst having previously undergone I&D secondary to acute abscess/cellulitis back in February. He has healed up
from a infectious standpoint and presents today for definitive excision.
Relevant Past Medical History: Other (Hypertension, CAD, hyperlipidemia, GERD, diabetic neuropathy, depression, glaucoma, diabetic retinopathy, history of CAD status post RAUL, history of CHF and ischemic cardiomyopathy)
Relevant Social History: Negative
Relevant Family History: Negative
Relevant Past Surgical History: Positive for
Review of Systems
Review of Pertinent Systems: All Systems Negative
Medication
See Medication form for detailed medications: Yes
Medication List (including Herbals & OTC):
aspirin 81 mg capsule 81 mg PO DAILY Blood Clot Prevention/Tx 02/24/24
atorvastatin 80 mg tablet (Lipitor) 80 mg PO HS High Cholesterol 02/24/24
brinzolamide 1 %-brimonidine 0.2 % eye drops,suspension (Simbrinza) 1 drp BOTH EYES BID Eye Condition 02/24/24
bumetanide 2 mg tablet 2 mg PO BID Fluid Retention/Swelling 02/24/24
dapagliflozin propanediol 10 mg tablet (Farxiga) 10 mg PO DAILY Diabetes 02/24/24
ezetimibe 10 mg tablet (Zetia) 10 mg PO DAILY High Cholesterol 02/24/24
glimepiride 4 mg tablet 4 mg PO QPM Diabetes 02/24/24
ketorolac 0.5 % eye drops 1 drp RIGHT EYE BID Eye Condition 02/24/24
levomefolate calcium 15 mg tablet (L-Methylfolate) 15 mg PO DAILY Supplement 02/24/24
prasugrel 10 mg tablet 10 mg PO DAILY Blood Clot Prevention/Tx 02/24/24
sertraline 25 mg tablet (Zoloft) 25 mg PO DAILY Depression 02/24/24
doxycycline hyclate 100 mg capsule 100 mg PO DAILY 04/11/24
insulin aspart U-100 100 unit/mL (3 mL) subcutaneous pen (Novolog FlexPen U-100 Insulin aspart) 1 sliding scale dose SC DIRECTED 04/11/24
insulin glargine 100 unit/mL subcutaneous solution 15 unit SC QPM 04/11/24
metoprolol succinate 25 mg tablet,extended release 24 hr 25 mg PO DAILY 04/11/24
netarsudil 0.02 %-latanoprost 0.005 % eye drops (Rocklatan) 1 drp BOTH EYES DAILY 04/11/24
Medications Reviewed: Yes
Allergies and Reactions
Patient has Allergies: Yes
Noted Allergies and Reactions:
Allergy/AdvReac Type Severity Reaction Status Date / Time
adhesive Allergy Hives Verified 04/18/24 06:17
No Known Drug Allergies Allergy NA Verified 04/18/24 06:17
Pertinent Physical Exam
All Other Systems: Negative
Head/Neck: Other (Right posterior lateral neck with palpable sebaceous cyst about 2 cm)
Lungs: Normal
Heart: Normal
Abdomen: Normal and Other
Extremities: Normal
Neurological: Normal
Diagnosis / Assessment
68-year-old male with a posterior neck sebaceous cyst, recent history of infection requiring I&D.
Plan / Procedure
Excision right posterior neck sebaceous cyst mass
Anesthesia/Sedation to be done by Anesthesia Provider: Yes
[2024-04-18] MEDS: TYLENOL 1000 MG PO (07:03)
--- NOTE | 2024-04-18 07:18 | W.SUR.PREOP ---
Pre-Operative Surgical Note
-
I have examined this patient prior to the performance of the scheduled procedure.
The patient's condition is unchanged from the time of the current History and
Physical and the patient is able to undergo the scheduled procedure.
[2024-04-18 08:17] VITALS: BP 91/57
[2024-04-18 08:20] VITALS: BP 100/66
[2024-04-18 08:30] VITALS: BP 98/64
[2024-04-18 08:32] LABS: Glucose - Point of Care 117 mg/dl (70-99)
--- NOTE | 2024-04-18 08:42 | W.IMMPOSTOP ---
Addendum entered and electronically signed by Rodriguez Santos MD 04/18/24 08:53:
#[id number]
Original Note:
Surgical Immed Post Op Note
-
Primary Surgeon: Tom
Assisting Surgeon: None
Pre-op Diagnosis: Right posterior neck sebaceous cyst
Post-op Diagnosis: Right posterior neck sebaceous cyst; 2.5 cm
Procedure Performed: Excision posterior right neck sebaceous cyst
Anesthesia Type: Monitored sedation anesthetic care with incisional field block utilizing 0.25% Marcaine
Specimen / Cultures: Sebaceous cyst
Estimated Blood Loss: 6 mL
Complications: None immediate
Operative Findings: Well encapsulated sebaceous cyst removed in its entirety. No active surrounding infectious component. Closure of elliptical skin incision with deep dermal 3-0 Vicryl and subcutaneous 4-0 Monocryl
[2024-04-18 08:45] VITALS: BP 109/72
[2024-04-18 09:15] VITALS: BP 104/68
== END 2024-04-18 09:20 | disposition home or self-care (01) ==
LOC: SDS 06:06
PROVIDERS: ATTENDING PHYSICIAN Surgery
DX: L72.3 Sebaceous cyst (principal)
CPT/HCPCS: 11423; 12042; 88304; 82962